=== PATIENT | female | born 1960 | race Two or more races ===

== ENCOUNTER 2016-12-29 10:42 | Emergency (ER) | payer MEDICAID ==
[~2016-12-29] VITALS: Ht 165.1 cm; Wt 95.3 kg
[2016-12-29] MEDS ORDERED: SYNTHROID25 MCG ORAL (10:51)
[2016-12-29 10:52] VITALS: BP 175/94
--- NOTE | 2016-12-29 11:18 | Emergency Room Report ---
History of Present Illness General Chief Complaint: Pain Source: Patient Present Illness HPI Patient presents with left heel pain. 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 Return to school and became active again. Now she's had return of her heel pain on the left-hand side. She states she does not have gout. She's not taking any medication for this yet. She denies any fevers, calf pain, swelling, hemoptysis, cough, chest pain , nausea, vomiting, diarrhea, dysuria. 8/10 radiates to ankle and posterior calf. Worse in AM. In past improved after steroid injection. 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 [place] Last Menstrual Period: menopause Reviewed Nursing Documentation: PMH: Agreed, PSxH: Agreed Nursing Documentation-[facility] Past Medical History: No History, Except For Review of Systems All Other Systems: negative except mentioned in HPI Physical Exam Vital Signs Date Time Temp Pulse Resp B/P Pulse Ox O2 Delivery O2 Flow Rate FiO2 12/29/16 10:47 97.5 75 16 175/94 97 Room Air Sp02 EP Interpretation: reviewed, normal General Appearance: well appearing, no apparent distress Head: normocephalic, atraumatic Eyes: bilateral eye PERRL, bilateral eye normal inspection ENT: hearing grossly normal, normal voice, moist mucus membranes Neck: full range of motion, supple Respiratory: no respiratory distress, speaking full sentences Cardiovascular #2: 2+ radial (L) Gastrointestinal: normal inspection, overweight Musculoskeletal: back normal, digits/nails normal, gait/station normal, normal range of motion, no calf tenderness, other - tenderness calcaneous, no warmth or swelling Neurologic: alert, oriented x3, motor strength/tone normal, sensory intact, normal gait Psychiatric: mood/affect normal Skin: no rash Medical Decision Making Diagnostic Impression: Primary Impression: Plantar fasciitis ER Course Patient with heel pain. Ddx: spur, plantar fasciitis, cellulitis, gout amongst others. Exam more consistent with plantar fasciitis but will obtain x-ray to exclude spur. Xray with minimal spur. Diagnosis is clinical. Discussed further treatment options. 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 Patient stable for outpatient observation and treatment. Other X-Ray Diagnostic Results Other X-Ray Diagnostic Results : X-Ray Ordered: foot EP Interpretation: Yes Findings: no fractures, no dislocation, no soft tissue swelling, other - minimal spur Number of Views: 3 Last Vital Signs Date Time Temp Pulse Resp B/P Pulse Ox O2 Delivery O2 Flow Rate FiO2 12/29/16 10:52 97.5 75 16 175/94 97 Room Air Status: improved Disposition: HOME, SELF-CARE Condition: Improved Scripts Ibuprofen* (MOTRIN*) 600 Mg Tablet 600 MG ORAL Q6H Y for For Pain, #20 TAB Prov: Stvee Gaines M.D. 12/29/16 Steve Gaines M.D. December 29, 2016 11:18
[2016-12-29] MEDS ORDERED: IBUPROFEN600 MG ORAL (11:30)
[2016-12-29 11:36] VITALS: BP 175/94
--- NOTE | 2016-12-29 13:37 | Diagnostic Imaging Report ---
Indication: Pain Comparison: None Findings: 3 views of the left foot were obtained. No acute fractures, malalignment, erosions or periostitis are identified. Bone mineralization is within normal limits. Soft tissues are unremarkable. Impression: No acute findings
== END 2016-12-29 11:36 | disposition home or self-care (01) ==
LOC: EMR 11:20
DX: M72.2 Plantar fascial fibromatosis (principal); Z91.013 Allergy to seafood
CPT/HCPCS: 99283

== ENCOUNTER 2017-10-01 17:26 | Emergency (ER) | payer MEDICAID ==
[~2017-10-01] VITALS: Ht 165.1 cm; Wt 93.0 kg
[~2017-10-01 17:26] MED LIST: IBUPROFEN600 MG ORAL; SYNTHROID25 MCG ORAL
[2017-10-01 17:39] VITALS: BP 162/94
--- NOTE | 2017-10-01 17:52 | Emergency Room Report ---
History of Present Illness General Chief Complaint: Skin Rash/Abscess Source: Patient, Medical Record Present Illness HPI 57-year-old female patient presents ER complaining of abscess on left buttock since Tuesday. Patient reports that abscess has been growing in size and becoming more painful durign this time. Patient states she has not been taking any medications. Reports pain with sitting down. Patient denies pain with ambulation. Patient denies blood in stool, painful bowel movements. Patient denies draining from abscess. Patient denies fever, rash, chest pain, SOB. Allergies: Coded Allergies: [place] (Verified Allergy, Unknown, 12/29/16) Patient History Past Medical History: see triage record Reviewed Nursing Documentation: PMH: Agreed, PSxH: Agreed Nursing Documentation-PMH Past Medical History: No History, Except For Review of Systems All Other Systems: negative except mentioned in HPI Physical Exam Vital Signs Date Time Temp Pulse Resp B/P (MAP) Pulse Ox O2 Delivery O2 Flow Rate FiO2 10/01/17 17:35 97.7 109 18 162/94 97 Room Air 97.7 Sp02 EP Interpretation: reviewed, normal General Appearance: well appearing, alert, GCS 15, non-toxic, mild distress Head: normocephalic, atraumatic Eyes: bilateral eye normal inspection, bilateral eye PERRL ENT: hearing grossly normal, normal pharynx, normal voice, uvula midline, moist mucus membranes Neck: normal inspection, full range of motion, no bony tend Respiratory: normal inspection, lungs clear, normal breath sounds, speaking full sentences Cardiovascular #1: regular rate, rhythm Gastrointestinal: normal bowel sounds, non tender, soft, no mass, non-distended , no guarding, no rebound Rectal: deferred Musculoskeletal: back normal, digits/nails normal, gait/station normal, normal range of motion, no calf tenderness Neurologic: alert, oriented x3, responsive, motor strength/tone normal, sensory intact, normal gait Psychiatric: mood/affect normal Skin: no rash, warm/dry, other - 3 cm abscess medial left buttok, no fluctuance , indurated, no erythema, does not come to a point, no drainage, no erythema Procedures Incision and Drainage Incision and Drainage : Consent: Verbal Blade Size: 11 I & D Procedure: betadine prep, sterile drapes applied, sterile dressing applied Wound Location: other Wound's Depth, Shape: superficial Wound Length (cm): 1 Wound Explored: contaminated Anesthesia: 1% Lidocaine Volume Anesthetic (ccs): 4 Sling Applied?: No Patient Tolerated: Well Complications: None Medical Decision Making PA Attestation Dr. Garrett is my supervising Physician whom patient management has been discussed with. Diagnostic Impression: Primary Impression: Abscess ER Course Pt. presents to the ED c/o abscess Ddx considered but are not limited to rash, cellulitis, abscess, sebaceous cyst , carbuncle, folliculitis. Vital signs: pt. is afebrile ORDERS: Lidocaine No imaging required at this time. ED INTERVENTIONS: Ibuprofen for pain Field block of abscess performed with lidocaine. I&D of abscess performed. Wound packed with iodoform gauze packing Sterile dressing applied to wound following procedure. Patient reports feeling relief of pain following procedure. DISCHARGE: -Rx provided for Keflex -Rx provided for Bactrim -Rx provided for Ibuprofen At this time pt. is stable for d/c to home. Patient is resting comfortably in no acute distress, nontoxic appearing. Patient vital signs are WNL at discharge. Will provide printed patient care instructions and any necessary prescriptions. Care plan and follow up instructions have been discussed with the patient prior to discharge. Patient instructed to follow-up with primary care provider in 2 - 3 days for wound recheck. Patient questions asked and answered. ER precautions given. Patient instructed to return to ER immediately for any new or worsening of symptoms including but not limited to fever, worsening of pain symptoms. Last Vital Signs Date Time Temp Pulse Resp B/P (MAP) Pulse Ox O2 Delivery O2 Flow Rate FiO2 10/01/17 17:39 97.7 109 18 162/94 97 Room Air 97.7 Disposition: HOME, SELF-CARE Condition: Stable Scripts Acetaminophen* (TYLENOL EXTRA STRENGTH*) 500 Mg Tablet 500 MG ORAL Q8H Y for Prn Headache/Temp > 101, #30 TAB 0 Refills Prov: Hood Madera P.A. 10/01/17 Trimethoprim/Sulfamethoxazole 160/800* (BACTRIM DS TABLET*) 1 Each Tablet 1 TAB ORAL TWICE A DAY for 7 Days, #14 TAB Prov: Hood Madera P.A. 10/01/17 Cephalexin* (KEFLEX*) 500 Mg Capsule 500 MG ORAL EVERY 12 HOURS for 7 Days, #14 CAP 0 Refills Prov: Hood Madera P.A. 10/01/17 Patient Instructions: Abscess Additional Instructions: Followup with primary care provider in 2-3 days for wound check. Keep wound dressing clean and dry. Take medications as directed. Patient questions asked and answered. ER precautions given, patient instructed to return to ER immediately for any new or worsening of symptoms. Hood Madera Oct 01, 2017 17:52
[2017-10-01] MEDS ORDERED: Lidocaine 1% Plain 30 ml INJ ONE (19:15)
[2017-10-01] MEDS ORDERED: BACTRIM DS TAB1 EAC1 ORAL (19:32)
[2017-10-01] MEDS ORDERED: CEPHALEXIN500 MG ORAL (19:32)
[2017-10-01] MEDS ORDERED: TYLENOL EXTRA500 MG ORAL (19:32)
[2017-10-01 19:40] VITALS: BP 155/90
== END 2017-10-01 19:40 | disposition home or self-care (01) ==
LOC: EMR 18:15
DX: L02.31 Cutaneous abscess of buttock (principal); Z91.013 Allergy to seafood
CPT/HCPCS: 10060; 99284; J2001